=== PATIENT | male | born 1935 | race Caucasian/White ===

== ENCOUNTER → 2016-04-29 | Outpatient (REF) | payer MEDICARE, MEDICAID ==
[2016-04-29 12:53] LABS: BASO % 0.3 % (0.0-1.0); EOS # 0.1 K/mm3 (0.0-0.50); EOS % 2.5 % (0.0-3.0); LARGE UNSTAINED CELL # 0.2 K/mm3 (0.0-0.4); LARGE UNSTAINED CELL % 3.2 % (0.0-4.0); LYMPH # 1.8 K/mm3 (1.5-4.5); LYMPH % 33.6 % (24.0-44.0); MEAN CORPUSCULAR HEMOGLOBIN 32.1 pg (27.0-33.0); MEAN CORPUSCULAR HGB CONC 31.9 g/dl (32.0-36.5); MEAN CORPUSCULAR VOLUME 100.6 fl (80.0-96.0); MONO # 0.7 K/mm3 (0.0-0.8); MONO % 12.5 % (0.0-5.0); NEUTROPHILS # 2.6 K/mm3 (1.8-7.7); NEUTROPHILS % 47.9 % (36.0-66.0); PLATELET COUNT, AUTOMATED 131 k/mm3 (150-450); RED CELL DISTRIBUTION WIDTH 13.5 % (11.5-14.5); WHITE BLOOD COUNT 5.3 K/mm3 (4.0-10.0)
[2016-04-29 12:56] LABS: CALCIUM LEVEL 8.8 MG/DL (8.8-10.2); CREATININE FOR GFR 1.94 MG/DL (0.70-1.30); GLOMERULAR FILTRATION RATE 35.5 (>35); PHOSPHORUS LEVEL 3.6 MG/DL (2.5-4.9); POTASSIUM SERUM 4.6 MEQ/L (3.5-5.1)
== END ==
LOC: M LABDRAWC 11:59
PROVIDERS: ATTEND Family Medicine
DX: N18.3 Chronic kidney disease, stage 3 (moderate) (principal); N25.81 Secondary hyperparathyroidism of renal origin

== ENCOUNTER 2016-08-03 13:16 | Emergency (ER) | payer MEDICARE, MEDICAID ==
[~2016-08-03] VITALS: Ht 172.7 cm; Wt 64.4 kg
[2016-08-03 13:17] VITALS: BP 119/56
[2016-08-03] MEDS ORDERED: SENO8.6T2 PO (13:39)
[2016-08-03] MEDS ORDERED: MULT1TAB10 PO (13:39)
[2016-08-03] MEDS ORDERED: VERA120T2 PO (13:39)
[2016-08-03] MEDS ORDERED: TRIH2TAB3 PO (13:39)
[2016-08-03] MEDS ORDERED: SINE25TACR PO (13:39)
[2016-08-03] MEDS ORDERED: FLOM5CAP PO (13:39)
[2016-08-03] MEDS ORDERED: ASPI1TAB PO (13:39)
[2016-08-03] MEDS ORDERED: QUET1TAB7 PO (13:39)
[2016-08-03] MEDS ORDERED: ATOR1TAB21 PO (13:39)
[2016-08-03] MEDS ORDERED: FINA5TAB2 PO (13:39)
[2016-08-03] MEDS ORDERED: COLA100C3 PO (13:39)
[2016-08-03] MEDS ORDERED: DEPA500T2 PO ×2 (13:39)
[2016-08-03] MEDS ORDERED: VITA2000 PO (13:39)
[2016-08-03] MEDS ORDERED: LEVO75TA34 PO (13:39)
[2016-08-03] MEDS ORDERED: PRESCAP PO (13:39)
--- NOTE | 2016-08-03 15:10 | REP ---
CT HEAD WITHOUT CONTRAST: HISTORY: Trauma. Areas of decreased attenuation are present in the periventricular white matter. This represents small vessel ischemic disease. There is no intraparenchymal hemorrhage, mass or midline shift. The ventricular system and cortical sulci as well as subarachnoid space in the posterior fossa are dilated consistent with moderate volume loss. There is no extracerebral collection. There is no fracture. Mucosal thickening is present in the ethmoid sinuses. IMPRESSION: 1. Small vessel ischemic disease. 2. Moderate volume loss. Signed by Sal Servin MD 08/03/2016 03:19 P
[2016-08-05] MEDS ORDERED: PERC5TAB6 PO (22:46)
== END 2016-08-03 15:42 | disposition home or self-care (01) ==
LOC: M ED 14:21
DX: G24.01 Drug induced subacute dyskinesia (principal); I10 Essential (primary) hypertension; G20 Parkinson's disease; Z79.82 Long term (current) use of aspirin; Z79.899 Other long term (current) drug therapy

== ENCOUNTER 2016-08-05 22:14 | Emergency (ER) | payer MEDICARE, MEDICAID ==
[~2016-08-05] VITALS: Ht 172.7 cm; Wt 68.2 kg
[~2016-08-05 22:14] MED LIST: ASPI1TAB PO; ATOR1TAB21 PO; CARB1TAB PO; COLA100C5 PO; DEPA500T2 PO; FINA5TAB2 PO; FLOM5CAP PO; LEVO75TA34 PO; MULT1TAB10 PO; PRESCAP PO; QUET1TAB7 PO; SENO8.6T5 PO; TRIH2TAB3 PO; VERA120T2 PO; VITA2000 PO
[2016-08-05] MEDS ORDERED: PERC5TAB12 PO (22:46)
--- NOTE | 2016-08-06 00:50 | REPUSA ---
CLINICAL HISTORY: Trauma. TECHNIQUE: Multiple axial CT images were obtained through the brain without IV contrast material. COMMENTS: There is normal configuration of sella turcica. There are no intra or extra-axial collections. There is no mass effect or midline shift. There is no evidence of hematoma formation. No hydrocephalus is p resent. The ventricles are symmetrical. No abnormal calcifications are present. There is diffuse age-appropriate cerebellar and cerebral atrophy with proportionally dilated ventricl es and cortical sulci. There are bilateral periventricular and subcortical white matter hypolucencies compatible with mild c hronic microvascular disease. Otherwise, no significant focal abnormalities are seen either in the posterior fossa or supratentoria l compartment. IMPRESSION: 1. Age-appropriate cerebellar and cerebral atrophy. 2. Mild chronic microvascular disease. 3. No evidence of acute intracranial pathology. Thank you for your kind referral of this patient.
[2016-08-06 01:22] VITALS: BP 138/76
== END 2016-08-06 01:23 | disposition home or self-care (01) ==
LOC: M ED 22:14 → EDBD 22:14 → M ED 08-06 00:08
DX: G24.01 Drug induced subacute dyskinesia (principal); R51 Headache; W06.XXXA Fall from bed, initial encounter; Y92.019 Unspecified place in single-family (private) house as the place of occurrence of the external cause; Y93.89 Activity, other specified; Y99.9 Unspecified external cause status; I10 Essential (primary) hypertension

== ENCOUNTER 2016-09-09 12:06 | Emergency (ER) | payer MEDICARE, MEDICAID ==
[~2016-09-09] VITALS: Ht 172.7 cm; Wt 60.4 kg
[~2016-09-09 12:06] MED LIST changes: +PERC5TAB12 PO
[2016-09-09] MEDS ORDERED: NS 1,000 ML IV SCH (12:39)
[2016-09-09 12:56] LABS: BASO % 0.4 % (0.0-1.0); EOS % 0.6 % (0.0-3.0); LARGE UNSTAINED CELL # 0.2 K/mm3 (0.0-0.4); LARGE UNSTAINED CELL % 2.6 % (0.0-4.0); LYMPH # 1.2 K/mm3 (1.5-4.5); LYMPH % 14.8 % (24.0-44.0); MEAN CORPUSCULAR HEMOGLOBIN 33.3 pg (27.0-33.0); MEAN CORPUSCULAR HGB CONC 33.1 g/dl (32.0-36.5); MEAN CORPUSCULAR VOLUME 100.4 fl (80.0-96.0); MONO # 0.9 K/mm3 (0.0-0.8); MONO % 13.6 % (0.0-5.0); NEUTROPHILS # 4.7 K/mm3 (1.8-7.7); PLATELET COUNT, AUTOMATED 175 k/mm3 (150-450); RED CELL DISTRIBUTION WIDTH 14.9 % (11.5-14.5); WHITE BLOOD COUNT 6.9 K/mm3 (4.0-10.0)
[2016-09-09 13:17] LABS: ALBUMIN 2.5 GM/DL (3.2-5.2); ALBUMIN/GLOBULIN RATIO 0.6 (1.00-1.93); BILIRUBIN,DIRECT 0.1 MG/DL (0.0-0.2); BILIRUBIN,TOTAL 0.3 MG/DL (0.2-1.0); CALCIUM LEVEL 8.4 MG/DL (8.8-10.2); CREATININE FOR GFR 1.85 MG/DL (0.70-1.30); GLOMERULAR FILTRATION RATE 37.4 (>35); POTASSIUM SERUM 4.4 MEQ/L (3.5-5.1); TOTAL PROTEIN 6.7 GM/DL (6.4-8.2)
--- NOTE | 2016-09-09 13:34 | REP ---
CT of the brain without IV contrast: Comparisons are 08/05/2016 and 08/03/2016. There is no subdural or epidural hematoma. There is no hemorrhage. 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 The hygroma on the left appears slightly larger than on 08/05/2016. They were not present 08/03/2016. There is no mass effect or midline shift. The cortical stripe is unremarkable. The ventricles and sulci are mildly enlarged compatible with diffuse volume loss. This is unchanged. The visualized paranasal sinuses and mastoid air cells are clear. Impression: There is no hemorrhage, acute infarct or mass. No subdural hematoma. 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 These were also present on 08/05/2016. The hygroma on the left appears slightly larger today. These were not present on 08/03/2016. There is mild diffuse volume loss, unchanged. Signed by Scott Miranda MD 09/09/2016 01:26 P
--- NOTE | 2016-09-09 14:51 | REP ---
Left lower extremity deep vein duplex ultrasound: The deep veins demonstrate normal compression, normal Doppler color flow and normal Doppler waveforms with respiration augmentation at multiple levels from the popliteal vein to the common femoral vein. There is no deep vein thrombus. There is a popliteal fossa cyst, likely a Barrow's cyst, measuring 2.9 x 2.2 x 3.3 cm. Signed by Scott Miranda MD 09/09/2016 02:42 P
[2016-09-09 17:42] VITALS: BP 129/61
--- NOTE | 2016-09-10 10:45 | ED PDOC ---
Post-Departure Follow-Up radiology report faxed to Daly Paulino MD Sep 10, 2016 10:45
--- NOTE | 2016-09-10 11:31 | ECGEPIP ---
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
== END 2016-09-09 18:16 | disposition home or self-care (01) ==
LOC: M ED 12:06 → EDBD 12:06 → M ED 18:16
DX: D18.1 Lymphangioma, any site (principal); M71.22 Synovial cyst of popliteal space [Baker], left knee; I10 Essential (primary) hypertension; E07.9 Disorder of thyroid, unspecified; N40.0 Benign prostatic hyperplasia without lower urinary tract symptoms; G20 Parkinson's disease; N28.9 Disorder of kidney and ureter, unspecified; Z79.82 Long term (current) use of aspirin; Z79.899 Other long term (current) drug therapy
CPT/HCPCS: 36415; 70450; 80048; 80076; 82550; 82553; 83690; 83880; 84443; 84484; 85025; 93005; 93041; 93971; 94760; 97161; 99285; G8978; G8979; G8980